=== PATIENT | female | born 1980 | race Caucasian/White ===

== ENCOUNTER 2016-12-16 18:29 | Emergency (ER) | payer BC, OTHER ==
[2016-12-16 18:37] VITALS: BP 119/78
[2016-12-16] MEDS ORDERED: methylPREDNISolone Sodium Succinate 125 MG/2 ML SDV IVPUSH ONE (18:41)
[2016-12-16] MEDS ORDERED: diphenhydrAMINE 50 MG/ML SDV IVPUSH ONE (18:41)
[2016-12-16] MEDS ORDERED: Sodium Chloride 0.9% 10 ML Syringe FLUSH PRN (18:41)
[2016-12-16] MEDS ORDERED: Famotidine 20 MG/2 ML SDV IVPUSH ONE (18:41)
--- NOTE | 2016-12-16 19:12 | EDM.PDOC ---
ED HPI Allergic Reaction - General Chief Complaint: Allergic Reaction Stated Complaint: ALLERGIC REACTION Time Seen by Provider: 12/16/16 18:38 Source of Information: Reports: Patient History Limitations: Reports: No limitations - History of Present Illness INITIAL COMMENTS - FREE TEXT/NARRATIVE: The patient presents with hives. She had a prework out drink and went running and when she came back she was covered in hives. She has no shortness of breath or swelling in her throat. This has never happened before. She has not eaten anything new. She has no new detergents, soaps or lotions. She has some seasonal allergies but there is very little growth outside at this time. She did run outside. Timing/Duration: Reports: Minutes: Location, Skin: Reports: generalized Characteristics: Reports: other (Urticarial) Associated features: Reports: warmth Severity: moderate Known identified source: no Place of Occurrence: other (After working out) - Related Data Allergies/ADRs: Allergies Allergy/AdvReac Type Severity Reaction Status Date / Time No Known Allergies Allergy Verified 12/16/16 18:37 Home Meds: Home Meds Prednisone [IJD: predniSONE] 40 mg PO WITHBREAKFAST #10 tab 12/16/16 [Rx] Past Medical History - Past Health History Medical/Surgical History: Denies Medical/Surgical History Social & Family History - Tobacco Use Smoking Status *Q: Never Smoker ED ROS ALLERGIC REACTION - Review of Systems Review Of Systems: See Below Constitutional: Reports: no symptoms HEENT: Reports: No symptoms Respiratory: Reports: No Symptoms Cardiovascular: Reports: No symptoms Endocrine: Reports: no symptoms GI/Abdominal: Reports: No symptoms : Reports: no symptoms Musculoskeletal: Reports: no symptoms Skin: Reports: rash Neurological: Reports: No Symptoms Psychiatric: Reports: No symptoms ED EXAM GENERAL NO PERIP PULSE - Physical Exam Exam: See Below Exam Limited By: No limitations General Appearance: alert, no apparent distress Ears: normal external exam Nose: normal inspection Head: atraumatic, normocephalic Neck: normal inspection Respiratory/Chest: no respiratory distress, lungs clear, normal breath sounds Cardiovascular: regular rate, rhythm, no edema, no murmur GI/Abdominal: soft, non tender, no organomegaly, no mass Back Exam: normal inspection Extremities: normal inspection Skin Exam: Rash (Uriticarial) Course - Vital Signs Last Recorded V/S: Last Vital Signs Temp 98.9 F 12/16/16 18:35 Pulse 81 12/16/16 18:35 Resp 18 12/16/16 18:35 BP 119/78 12/16/16 18:35 Pulse Ox 98 12/16/16 18:35 - Orders/Labs/Meds Orders: Active Orders 24 hr Category Date Time Status Peripheral IV Care [RC] . DIRECTED Care 12/16/16 18:41 Active Sodium Chloride 0.9% [Saline Flush] Med 12/16/16 18:41 Active 10 ml FLUSH ASDIRECTED PRN Peripheral IV Insertion Adult [OM.PC] Routine Oth 12/16/16 18:41 Ordered Medication Orders Sodium Chloride (Saline Flush) 10 ml FLUSH ASDIRECTED PRN PRN Reason: Keep Vein Open Last Admin: 12/16/16 18:47 Dose: 10 ml Meds: Medications Generic Name Dose Route Start Last Admin Trade Name Freq PRN Reason Stop Dose Admin Sodium Chloride 10 ml 12/16/16 18:41 12/16/16 18:47 Saline Flush FLUSH 10 ml ASDIRECTED PRN Administration Keep Vein Open Discontinued Medications Generic Name Dose Route Start Last Admin Trade Name Freq PRN Reason Stop Dose Admin Diphenhydramine HCl 50 mg 12/16/16 18:41 12/16/16 18:46 Benadryl IVPUSH 12/16/16 18:42 50 mg ONETIME ONE Administration Famotidine 20 mg 12/16/16 18:41 12/16/16 18:46 Pepcid IVPUSH 12/16/16 18:42 20 mg ONETIME ONE Administration Methylprednisolone Sodium Succinate 125 mg 12/16/16 18:41 12/16/16 18:46 Solu-Medrol IVPUSH 12/16/16 18:42 125 mg ONETIME ONE Administration - Re-Assessments/Exams Free Text/Narrative Re-Assessment/Exam: 12/16/16 19:10 I put an IV saline lock in and gave her solu-medrol 125mg IV, benadryl 50mg IV and pepcid 20mg IV. She feels better. I will put her on some prednisone 40mg for 5 days, pepcid 20mg for 5 days and some benadryl as needed. Departure - Departure Time of Disposition: 19:20 Disposition: Home, Self-Care 01 Condition: good Clinical Impression: Hives Allergic reaction Qualifiers: Encounter type: initial encounter Qualified Code(s): T78.40XA - Allergy, unspecified, initial encounter Prescriptions: Prednisone [IJD: predniSONE] 40 mg PO WITHBREAKFAST #10 tab Referrals: Nanda Cortez MD [Primary Care Provider] - Forms: ED Department Discharge Additional Instructions: Take the prednisone daily for 5 days. Take pepcid daily for 5 days. Take benadryl or claritin as needed for the hives or itching. Please return if you are worse. - My Orders Last 24 Hours: My Active Orders 12/16/16 18:41 Peripheral IV Care [RC] . DIRECTED Sodium Chloride 0.9% [Saline Flush] 10 ml FLUSH ASDIRECTED PRN Peripheral IV Insertion Adult [OM.PC] Routine - Assessment/Plan Last 24 Hours: My Active Orders 12/16/16 18:41 Peripheral IV Care [RC] . DIRECTED Sodium Chloride 0.9% [Saline Flush] 10 ml FLUSH ASDIRECTED PRN Peripheral IV Insertion Adult [OM.PC] Routine
== END 2016-12-16 19:27 | disposition home or self-care (01) ==
LOC: JD.ED 18:29
DX: L50.0 Allergic urticaria (principal)
CPT/HCPCS: 96374; 96375; 99283; J1200; J2930; J7050; 99284

== ENCOUNTER 2017-01-01 19:03 | Emergency (ER) | payer BC, OTHER ==
[2017-01-01 19:16] VITALS: BP 117/72
[2017-01-01] MEDS ORDERED: diphenhydrAMINE 50 MG/ML SDV IVPUSH ONE (19:30)
[2017-01-01] MEDS ORDERED: methylPREDNISolone Sodium Succinate 125 MG/2 ML SDV IVPUSH ONE (19:30)
[2017-01-01] MEDS ORDERED: Famotidine 20 MG/2 ML SDV IVPUSH ONE (19:30)
[2017-01-01] MEDS ORDERED: Sodium Chloride 0.9% 10 ML Syringe FLUSH PRN (19:30)
--- NOTE | 2017-01-01 19:31 | EDM.PDOC ---
ED HPI Allergic Reaction - General Chief Complaint: Allergic Reaction Stated Complaint: Allergic reaction Time Seen by Provider: 01/01/17 19:15 Source of Information: Reports: Patient, Old records, RN notes reviewed History Limitations: Reports: No limitations - History of Present Illness INITIAL COMMENTS - FREE TEXT/NARRATIVE: 36 year old female presents to the ED with sudden onset of urticaria and hives. She was running this evening and developed allergic reaction symptoms. Her face felt numb for a short time. She is training for a marathon and runs on a regular basis. She was at about mile 4.5 when the symptoms started. She ran to 5 miles at which time she took a claritin before coming in. She had the exact same symptoms on 12/16/16 and was seen in the ED. She had drank a pre-workout supplement prior to that run and attributed the symptoms to that. However, she has not had the supplement since then. Since her last visit, she has been running in the morning. Today is the first time since 12/16/16 that she ran outside in the evening. She has ran in different areas of town. She has no shortness of breath, difficulty breathing, throat or tongue swelling. She has seasonal allergies but this type of exercise induced reaction is new.She has a history of seasonal allergies and denies any allergic rhinitis symptoms at this time. - Related Data Allergies/ADRs: Allergies Allergy/AdvReac Type Severity Reaction Status Date / Time No Known Allergies Allergy Verified 12/16/16 18:37 Home Meds: Home Meds predniSONE [Prednisone] 20 mg PO DAILY #5 tablet 01/01/17 [Rx] Past Medical History - Past Health History Medical/Surgical History: Denies Medical/Surgical History Dermatologic History: Reports: Other (see below) Other Dermatologic History: allergic reaction with hives Social & Family History - Tobacco Use Smoking Status *Q: Never Smoker - Caffeine Use Caffeine Use: Reports: Coffee - Recreational Drug Use Recreational Drug Use: No ED ROS ALLERGIC REACTION - Review of Systems Review Of Systems: See Below Constitutional: Reports: no symptoms. Denies: fever, chills HEENT: Denies: Rhinitis, Sinus problem Respiratory: Reports: No Symptoms. Denies: Shortness of Breath, Wheezing Cardiovascular: Reports: No symptoms. Denies: Chest pain Skin: Reports: change in color (red), urticaria, other (hives) ED EXAM GENERAL NO PERIP PULSE - Physical Exam Exam: See Below Exam Limited By: No limitations General Appearance: alert, WD/WN, no apparent distress Ears: normal external exam, normal canal, hearing grossly normal, normal TMs Nose: normal inspection, normal mucosa Throat/Mouth: Normal inspection, Normal lips, Normal oropharynx, Normal voice, No airway compromise. No: Inflammation Neck: normal inspection, supple, non-tender Respiratory/Chest: no respiratory distress, lungs clear, normal breath sounds Cardiovascular: no murmur, tachycardia Neurological: alert, oriented, normal cognition Skin Exam: Warm, Dry, Intact, Other (diffuse redness to entire body. No wheels or obvious hives but patient complaints of itching) Course - Vital Signs Last Recorded V/S: Last Vital Signs Temp 97.9 F 01/01/17 19:15 Pulse 102 H 01/01/17 19:15 Resp 20 01/01/17 19:15 BP 117/72 01/01/17 19:15 Pulse Ox 99 01/01/17 19:15 - Orders/Labs/Meds Orders: Active Orders 24 hr Category Date Time Status Peripheral IV Care [RC] . DIRECTED Care 01/01/17 19:30 Active Sodium Chloride 0.9% [Saline Flush] Med 01/01/17 19:30 Active 10 ml FLUSH ASDIRECTED PRN Peripheral IV Insertion Adult [OM.PC] Stat Oth 01/01/17 19:30 Ordered Medication Orders Sodium Chloride (Saline Flush) 10 ml FLUSH ASDIRECTED PRN PRN Reason: Keep Vein Open Last Admin: 01/01/17 19:47 Dose: 10 ml Labs: Laboratory Tests 01/01/17 Range/Units 19:45 WBC 8.24 (3.98-10.04) K/mm3 RBC 5.11 (3.98-5.22) M/mm3 Hgb 14.8 (11.2-15.7) gm/L Hct 43.7 (34.1-44.9) % MCV 85.5 (79.4-94.8) fl MCH 29.0 (25.6-32.2) pg MCHC 33.9 (32.2-35.5) g/dl RDW Std Deviation 40.9 (36.4-46.3) fL Plt Count 175 L (182-369) K/mm3 MPV 10.4 (9.4-12.3) fl Neut % (Auto) 77.3 H (34.0-71.1) % Lymph % (Auto) 15.5 L (19.3-51.7) % Rabun % (Auto) 6.4 (4.7-12.5) % Eos % (Auto) 0.6 L (0.7-5.8) Baso % (Auto) 0.2 (0.1-1.2) % Neut # (Auto) 6.36 H (1.56-6.13) K/mm3 Lymph # (Auto) 1.28 (1.18-3.74) K/mm3 Rabun # (Auto) 0.53 H (0.24-0.36) K/mm3 Eos # (Auto) 0.05 (0.04-0.36) K/mm3 Baso # (Auto) 0.02 (0.01-0.08) K/mm3 Meds: Medications Generic Name Dose Route Start Last Admin Trade Name Freq PRN Reason Stop Dose Admin Sodium Chloride 10 ml 01/01/17 19:30 01/01/17 19:47 Saline Flush FLUSH 10 ml ASDIRECTED PRN Administration Keep Vein Open Discontinued Medications Generic Name Dose Route Start Last Admin Trade Name Freq PRN Reason Stop Dose Admin Diphenhydramine HCl 50 mg 01/01/17 19:30 01/01/17 19:47 Benadryl IVPUSH 01/01/17 19:31 50 mg ONETIME ONE Administration Famotidine 20 mg 01/01/17 19:30 01/01/17 19:47 Pepcid IVPUSH 01/01/17 19:31 20 mg ONETIME ONE Administration Methylprednisolone Sodium Succinate 125 mg 01/01/17 19:30 01/01/17 19:47 Solu-Medrol IVPUSH 01/01/17 19:31 125 mg ONETIME ONE Administration - Re-Assessments/Exams Free Text/Narrative Re-Assessment/Exam: Symptoms completely resolved with Solu-medrol, pepcid, and benadryl. The patient still has the Prednisone prescription for 40mg daily x5 days provided by Dr. Bean at her last visit. I discussed her reoccurrence with Dr. Bean. He recommends a longer course of steroids and referral to [facility] technician parking. Patient was instructed to take the 40mg daily of prednisone. I then provided her with a prescription for Prednisone 20mg daily for an additional 5 days. She was instructed to take pepcid and anti-histamine every night at bedtime and to run in the morning since this is well tolerated. Educated on return precautions. Discharge instructions as documented. Departure - Departure Time of Disposition: 20:44 Disposition: Home, Self-Care 01 Condition: good Clinical Impression: Hives Allergic reaction Qualifiers: Encounter type: initial encounter Qualified Code(s): T78.40XA - Allergy, unspecified, initial encounter Prescriptions: predniSONE [Prednisone] 20 mg PO DAILY #5 tablet Referrals: Becca-Nanda Car MD [Primary Care Provider] - Yovany Carney MD [Ordering Only Provider] - Forms: ED Department Discharge Additional Instructions: Referral sent to [employer] Dr. Carney. Call to schedule Run in the morning when you don't seem to have problems Take anti-histamine of your choice (Zyrtec, Claritin, or Mellissa) once a day at night. Take this daily for the next month or more Take Pepcid 20 mg once a day at night. If you develop allergic reaction symptoms, take 50mg of Benadryl and return to ER immediately Follow-up with Dr. Hudson or one of her partners next week for recheck Start Prednisone tomorrow. Complete prescription provided by Dr. Bean for 40mg daily for 5 days then take 20mg daily for 5 days. This additional prescription was sent to [facility]. - My Orders Last 24 Hours: My Active Orders 01/01/17 19:30 Peripheral IV Care [RC] . DIRECTED Sodium Chloride 0.9% [Saline Flush] 10 ml FLUSH ASDIRECTED PRN Peripheral IV Insertion Adult [OM.PC] Stat - Assessment/Plan Last 24 Hours: My Active Orders 01/01/17 19:30 Peripheral IV Care [RC] . DIRECTED Sodium Chloride 0.9% [Saline Flush] 10 ml FLUSH ASDIRECTED PRN Peripheral IV Insertion Adult [OM.PC] Stat
== END 2017-01-01 20:47 | disposition home or self-care (01) ==
LOC: JD.ED 19:03
DX: L50.0 Allergic urticaria (principal); Z79.899 Other long term (current) drug therapy
CPT/HCPCS: 36415; 85025; 96374; 96375; 99284; J1200; J2930; J7050

== ENCOUNTER → 2020-11-16 | Day surgery (SDC) | payer BC, OTHER ==
[~2020-11-16] MED LIST: Bupivacaine 0.5%/EPINEPHrine 1:200,000 50 ML MDV ONE; Dexamethasone 4 MG/ML 5 ML MDV ONE; HYDROmorphone 0.5 MG/0.5 ML Syringe IVPUSH PRN; HYDROmorphone 0.5 MG/0.5 ML Syringe ONE; Ketorolac 30 MG/ML SDV ONE; Lactated Ringers 1,000 ML ONE; Lidocaine 1% 4 ML ONE; Midazolam 1 MG/ML 2 ML SDV ONE; Ondansetron 4 MG/2 ML SDV IVPUSH PRN; Ondansetron 4 MG/2 ML SDV ONE; Propofol 200 MG/20 ML SDV ONE; Rocuronium 50 MG/5 ML Vial ONE; cefOXitin 2 GM in Premix Bag 1 BAG IV ONE; fentaNYL 250 MCG/5 ML SDV ONE
--- NOTE | 2020-11-16 16:42 | PCM.PREANE ---
Preanesthetic Assessment - Procedure Proposed Procedure: lap appy - Anesthesia/Transfusion/Family Hx Anesthesia History: Prior Anesthesia Without Reaction Family History of Anesthesia Reaction: No Transfusion History: No Prior Transfusion(s) - Review of Systems General: No Symptoms Pulmonary: No Symptoms Cardiovascular: No Symptoms Gastrointestinal: Abdominal Pain, Vomiting (yesterday) Neurological: No Symptoms Other: Reports: None - Physical Assessment NPO Status Date: 11/16/20 NPO Status Time: 12:00 Vital Signs: Last Vital Signs Temp 99.5 F 11/16/20 16:31 Pulse 89 11/16/20 16:31 Resp 16 11/16/20 16:31 BP 132/70 11/16/20 16:31 Pulse Ox 96 11/16/20 16:31 Height: 5 ft 4 in Weight: 80.739 kg ASA Class: 2E Mental Status: Alert & Oriented x3 Airway Class: Mallampati = 1 Dentition: Reports: Normal Dentition Thyro-Mental Finger Breadths: 3 Mouth Opening Finger Breadths: 3 ROM/Head Extension: Full Lungs: Clear to Auscultation, Normal Respiratory Effort Cardiovascular: Regular Rate, Regular Rhythm - Lab Values: reviewed from [facility] negative - Allergies Allergies/Adverse Reactions: Allergies Allergy/AdvReac Type Severity Reaction Status Date / Time No Known Allergies Allergy Verified 12/16/16 18:37 - Blood Blood Available: No - Acknowledgements Anesthesia Type Planned: General Anesthesia Pt an Appropriate Candidate for the Planned Anesthesia: Yes Alternatives and Risks of Anesthesia Discussed w Pt/Guardian: Yes Pt/Guardian Understands and Agrees with Anesthesia Plan: Yes PreAnesthesia Questionnaire - Past Health History Medical/Surgical History: Denies Medical/Surgical History Cardiovascular History: Reports: None Respiratory History: Reports: None Gastrointestinal History: Reports: Other (See Below) (pain abd) Endocrine/Metabolic History: Reports: Obesity/BMI 30+ Dermatologic History: Reports: Other (See Below) Other Dermatologic History: allergic reaction with hives - SUBSTANCE USE Tobacco Use Status *Q: Never Tobacco User Tobacco Use Within Last Twelve Months: No Second Hand Smoke Exposure: No Days Per Week of Alcohol Use: 0 Recreational Drug Use History: No - HOME MEDS Home Medications: Home Meds predniSONE [Prednisone] 20 mg PO DAILY #5 tablet 01/01/17 [Rx] - CURRENT (IN HOUSE) MEDS Current Meds: Current Medications Discontinued Medications Bupivacaine HCl/Epinephrine Bitart (Marcaine 0.5%/Epinephrine 1:200,000) Confirm Administered Dose 50 ml .[address] [facility] ONE Stop: 11/16/20 16:25
--- NOTE | 2020-11-16 16:46 | PCM.HP.2 ---
H&P History of Present Illness - General Date of Service: 11/16/20 Admit Problem/Dx: acute appendicitis Source of Information: Patient History Limitations: Reports: No Limitations - History of Present Illness Initial Comments - Free Text/Narative: Mr. Gonzalez is a 40 yo woman with abdominal pain that began last night. Pain is in the right lower quadrant. This was preceded by malaise. The patient thought it was a muscle cramp at first. She went to the [facility] after she became concerned about possible appendicitis, and imaging was done with findings consistent with acute uncomplicated appendicitis. - Related Data Allergies/Adverse Reactions: Allergies Allergy/AdvReac Type Severity Reaction Status Date / Time No Known Allergies Allergy Verified 12/16/16 18:37 Home Medications: Home Meds predniSONE [Prednisone] 20 mg PO DAILY #5 tablet 01/01/17 [Rx] Past Medical History - Past Health History Medical/Surgical History: Denies Medical/Surgical History Cardiovascular History: Reports: None Respiratory History: Reports: None Gastrointestinal History: Reports: Other (See Below) (pain abd) Dermatologic History: Reports: Other (See Below) Other Dermatologic History: allergic reaction with hives Social & Family History - Tobacco Use Tobacco Use Status *Q: Never Tobacco User Second Hand Smoke Exposure: No - Caffeine Use Caffeine Use: Reports: Coffee - Alcohol Use Days Per Week of Alcohol Use: 0 - Recreational Drug Use Recreational Drug Use: No H&P Review of Systems - Review of Systems: Review Of Systems: See Below General: Reports: Malaise HEENT: Reports: No Symptoms Pulmonary: Reports: No Symptoms Cardiovascular: Reports: No Symptoms Gastrointestinal: Reports: Abdominal Pain Genitourinary: Reports: No Symptoms Musculoskeletal: Reports: No Symptoms Skin: Reports: No Symptoms Psychiatric: Reports: No Symptoms Neurological: Reports: No Symptoms Hematologic/Lymphatic: Reports: No Symptoms Immunologic: Reports: No Symptoms Exam - Exam Exam: See Below - Vital Signs Vital Signs: Last Vital Signs Temp 37.5 C 11/16/20 16:31 Pulse 89 11/16/20 16:31 Resp 16 11/16/20 16:31 BP 132/70 11/16/20 16:31 Pulse Ox 96 11/16/20 16:31 - Exam General: Alert, Oriented, Cooperative HEENT: Conjunctiva Clear Neck: Trachea Midline Lungs: Clear to Auscultation, Normal Respiratory Effort Cardiovascular: Regular Rate, Regular Rhythm GI/Abdominal Exam: Tender Back Exam: Normal Inspection Extremities: Normal Inspection Skin: Warm, Dry Neuro Extensive - Mental Status: Alert, Oriented x3 Sepsis Event Note - Focused Exam Vital Signs: Vital Signs Temp Pulse Resp BP Pulse Ox 11/16/20 16:31 37.5 C 89 16 132/70 96 Problem List Initiated/Reviewed/Updated: Yes Orders Last 24hrs: Active Orders 24 hr Category Date Time Status CORONAVIRUS COVID-19 YUE [MOLEC] Stat Lab 11/16/20 16:31 Ordered cefOXitin [Mefoxin in Dextrose,Iso-Osm 2 GM/50 ML] 2 gm Med 11/16/20 16:42 Ordered Premix Bag 1 bag IV ONETIME Assessment/Plan Comment:: acute appendicitis. Plan for laparoscopic appendectomy. - Mortality Measure Prognosis:: Good
--- NOTE | 2020-11-16 18:32 | PCM.POSTAN ---
POST ANESTHESIA ASSESSMENT - MENTAL STATUS Mental Status: Alert, Oriented - VITAL SIGNS Vital Signs: Last Vital Signs Temp 99.5 F 11/16/20 16:31 Pulse 89 11/16/20 16:31 Resp 16 11/16/20 16:31 BP 132/70 11/16/20 16:31 Pulse Ox 96 11/16/20 16:31 1827 100% 116/64 76 13 100.4 - RESPIRATORY Respiratory Status: Respiratory Rate WNL, Airway Patent, O2 Saturation Stable, Supplemental Oxygen - CARDIOVASCULAR CV Status: Pulse Rate WNL, Blood Pressure Stable - GASTROINTESTINAL GI Status: No Symptoms - PAIN Pain Score: 0 (little right side) - POST OP HYDRATION Hydration Status: Adequate & Stable
[2020-11-16] MEDS: fentaNYL 100 MCG/2 ML SDV IVPUSH PRN ×2 (18:37→18:48)
--- NOTE | 2020-11-16 18:39 | PCM.PRNOTE ---
- Free Text/Narrative Note: Date: 11/16/2020 Operation: laparoscopic appendectomy Indication: acute appendicitis Surgeon: Abundio Oshea MD Findings: acute uncomplicated appendicitis Detailed Report: The patient was taken to the OR and placed on the table supine. Time out was performed. General endotracheal anesthesia was initiated. The left arm was tucked and abdomen was prepped and draped in usual sterile fashion. A Veress needle was placed in the left upper quadrant to establish pneumoperitoneum. Air was aspirated at the umbilicus, and a 12 mm bladed trocar was inserted just inferior to the umbilicus. A 5 mm 30 degree laparoscope was inserted. There was no injury from Veress placement and the needle was removed. Additional 5 mm po rts were placed at the left lower quadrant and suprapubic area under laparoscopic visualization. The patient was placed in Trendelenburg to aid with exposure. The appendix was lateral to the cecum and adherent, it did appear to be retroperitoneal. There was inflammation without gangrene or perforation. A window was made in the mesoappendix adjacent to the base of the cecum using the [place] Ligasure. Two white loads on the 30 mm powered laparoscopic stapler were used to divide the appendix. The mesoappendix was divided using the Ligasure. The specimen was placed in an Endocatch and removed through the umbilical port site. The dissection field was dried up with an unfolded sponge. Hemostasis was good. The larger port was removed and fascia was closed with 0 vicryl on a laparoscopic suture passer. Remaining ports were removed and pneumoperitoneum released. Skin incisions were closed with 4-0 vicryl suture and dressed with dermabond. A total of 30 cc 0.5% marcaine with epinpehrine was used for local anesthetic. The patient tolerated the operation well and was transferred to recovery in good condition after extubation.
--- NOTE | 2020-11-16 18:48 | PCM48HPAN ---
Post Anesthesia Note - EVALUATION WITHIN 48HRS OF ANESTHETIC Vital Signs in Normal Range: Yes Patient Participated in Evaluation: Yes Respiratory Function Stable: Yes Airway Patent: Yes Cardiovascular Function Stable: Yes Hydration Status Stable: Yes Pain Control Satisfactory: Yes Nausea and Vomiting Control Satisfactory: Yes Mental Status Recovered: Yes Vital Signs: Last Vital Signs Temp 99.6 F 11/16/20 18:40 Pulse 66 11/16/20 18:40 Resp 10 L 11/16/20 18:41 BP 111/59 L 11/16/20 18:40 Pulse Ox 95 11/16/20 18:44
[2020-11-16 19:40] VITALS: BP 107/54; PULSE 78
== END | disposition home or self-care (01) ==
LOC: JD.SDS 16:00 → JD.ED 16:00 → EDSTATUS 16:05 → JD.SDS 16:15
PROVIDERS: ATTEND Surgery
DX: K35.30 Acute appendicitis with localized peritonitis, without perforation or gangrene (principal); E66.9 Obesity, unspecified; Z79.899 Other long term (current) drug therapy; Z68.30 Body mass index [BMI] 30.0-30.9, adult; Z01.812 Encounter for preprocedural laboratory examination; Z20.822 Contact with and (suspected) exposure to COVID-19
CPT/HCPCS: 44970; 87635; J0694; J1100; J1170; J1885; J2250; J2704; J2710; J3010; J3490; J7120; 00840; J2405; U0002